=== PATIENT | female | born 1965 | race Caucasian/White ===

== ENCOUNTER 2021-04-09 19:53 | Emergency (ER) | payer OTHER ==
[~2021-04-09] VITALS: Ht 165.1 cm; Wt 63.5 kg
[2021-04-09] MEDS ORDERED: LEVO-T25 MCG PO (20:02)
[2021-04-09] MEDS ORDERED: SIMVASTATIN40 MG PO (20:02)
[2021-04-09] MEDS ORDERED: ZOLOFT50 M1 PO (20:03)
[2021-04-09 20:27] LABS: HEMATOCRIT 42.5 % (37.0-47.0); HEMOGLOBIN 14.5 gm/dL (12.0-15.0); MCH 28.4 pg (26.0-34.0); MCV 83.6 fL (80.0-100.0); MPV 6.7 fl. (7.2-11.1); NUCLEATED RBCS 0 /100WBC; PLATELET COUNT* 292 thou/uL (150-400); RBC 5.09 mil/uL (4.20-5.00); RDW-CV 13.2 % (10.5-14.5); WBC 6.7 thou/uL (4.0-11.0)
[2021-04-09 20:37] LABS: CALCIUM 8.4 mg/dL (8.5-10.1); CREATININE 0.8 mg/dL (0.6-1.3)
[2021-04-09 20:42] LABS: ALBUMIN 3.5 g/dL (3.4-5.0); TOTAL BILIRUBIN 0.3 mg/dL (<0.1-1.0); TOTAL PROTEIN 6.8 g/dL (6.4-8.2)
[2021-04-09 20:48] LABS: ABSOLUTE BASOPHILS 0.1 thou/uL (0.0-0.2); ABSOLUTE EOSINOPHILS 0.7 thou/uL (0.0-0.7); ABSOLUTE LYMPHOCYTES 1.2 thou/uL (0.8-5.3); ABSOLUTE MONOCYTES 0.5 thou/uL (0.0-1.2); ABSOLUTE NEUTROPHILS 4.2 thou/uL (1.6-8.1); ATYPICAL LYMPHS 8 %; PLATELET ESTIMATE ADEQUATE
[2021-04-09] MEDS ORDERED: PREDNISONE 20 M20 MG PO (21:25)
[2021-04-09 21:38] VITALS: BP 125/60
--- NOTE | 2021-04-10 10:55 | EKG ---
[place] [address] ELECTROCARDIOGRAM REPORT Name: JANELLE ZARAGOZA Room: [facility]#: [id number] Admission: 04/09/21 Attend Phys: Discharge: 04/09/21 Date of : 63 Date of Service: 04/09/211956 Report #: [id number] THIS REPORT FOR: //name// 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: [place] : 1965 Requested By: Madie Hernandez Order Number: [id number] MD: Perez Colby Measurements Intervals [place] Rate: 115 P: 74 MS: 175 QRS: 66 QRSD: 104 T: 268 QT: 343 QTc: 475 Interpretive Statements Sinus tachycardia Consider right atrial enlargement Borderline repolarization abnormality No previous ECG available for comparison Electronically Signed On 04-10-2021 10:55:37 CDT by Perez Colby [email or web address] <ELECTRONICALLY SIGNED> By: Perez Colby MD, [facility] 04/10/21 1055 56 56 Perez Colby MD, FACC /EPI
== END 2021-04-09 21:41 | disposition home or self-care (01) ==
LOC: M.ERS 19:53
PROVIDERS: Physician Assistant
DX: J44.1 Chronic obstructive pulmonary disease with (acute) exacerbation (principal); Z20.822 Contact with and (suspected) exposure to COVID-19; E78.00 Pure hypercholesterolemia, unspecified; Z88.1 Allergy status to other antibiotic agents; Z91.041 Radiographic dye allergy status; Z88.0 Allergy status to penicillin; Z88.2 Allergy status to sulfonamides